=== PATIENT | female | born 1990 | race Caucasian/White ===

== ENCOUNTER 2018-04-13 22:00 | Emergency (ER) | payer OTHER ==
[~2018-04-13] VITALS: Ht 157.5 cm; Wt 62.6 kg
[2018-04-13 22:02] VITALS: BP 147/97
[2018-04-13] MEDS ORDERED: WELLBUTRIN SR150 MG PO (22:03)
[2018-04-13] MEDS ORDERED: PROZAC20 MG PO (22:03)
== END 2018-04-13 22:54 | disposition home or self-care (01) ==
LOC: ER 22:00
DX: S39.012A Strain of muscle, fascia and tendon of lower back, initial encounter (principal); F32.9 Major depressive disorder, single episode, unspecified; X50.0XXA Overexertion from strenuous movement or load, initial encounter; Y92.89 Other specified places as the place of occurrence of the external cause; Y93.89 Activity, other specified; Y99.8 Other external cause status

== ENCOUNTER → 2021-04-19 | Outpatient (CLI) | payer OTHER ==
[~2021-04-19] MED LIST: PROZAC20 MG PO; WELLBUTRIN SR150 MG PO
[2021-04-19 14:15] LABS: ABSOLUTE NEUTROPHILS 2.8 thou/uL (1.4-8.2); ABSOLUTE RETIC COUNT 0.0486 10^6/uL; BASOPHILS 0.3 % (0.0-2.0); HEMOGLOBIN 13.6 gm/dL (12.0-15.0); LYMPHOCYTES 23.3 % (24.0-44.0); MCH 27.9 pg (26.0-34.0); MCHC 32.4 g/dL (28.0-37.0); MCV 85.9 fL (80.0-100.0); MONOCYTES 8.5 % (1.0-8.0); OBSERVED RETIC COUNT 0.99 % (0.6-2.6); PLATELET COUNT 284 thou/uL (150-400); POLYS 65.9 % (36.0-66.0); RBC 4.89 mil/uL (4.20-5.00); WBC 4.2 thou/uL (4.0-11.0)
[2021-04-19 14:37] LABS: % SATURATION 25 % (20-39); IRON 96 ug/dL (50-170); TIBC 378 ug/dL (250-450)
[2021-04-19 14:38] LABS: CREATININE 0.8 mg/dL (0.6-1.0); POTASSIUM 4.2 mmol/L (3.5-5.1); TOTAL BILIRUBIN 0.3 mg/dL (0.2-1.0); TOTAL PROTEIN 7.4 g/dL (6.4-8.2)
[2021-04-19 15:46] LABS: FOLIC ACID 17.3 ng/mL (8.6-58.9)
[2021-04-20 06:06] LABS: HEMOGLOBIN 13.7 g/dL (11.1-15.9)
[2021-04-21 00:06] LABS: 25-HYDROXY TOTAL 49.6 ng/mL (30.0-100.0)
== END ==
LOC: LAB 13:33
PROVIDERS: ATTEND Internal Medicine
DX: D62 Acute posthemorrhagic anemia (principal)

== ENCOUNTER → 2021-07-23 | Outpatient (CLI) | payer OTHER ==
[2021-07-23 14:11] LABS: ABSOLUTE NEUTROPHILS 4.3 thou/uL (1.4-8.2); BASOPHILS 0.4 % (0.0-2.0); EOSINOPHILS 1.6 % (0.0-3.0); HEMATOCRIT 44.5 % (37.0-47.0); HEMOGLOBIN 14.8 gm/dL (12.0-15.0); LYMPHOCYTES 18.6 % (24.0-44.0); MCH 28.8 pg (26.0-34.0); MCHC 33.4 g/dL (28.0-37.0); MCV 86.4 fL (80.0-100.0); MONOCYTES 7.9 % (1.0-8.0); PLATELET COUNT 322 thou/uL (150-400); POLYS 71.5 % (36.0-66.0); RBC 5.14 mil/uL (4.20-5.00); RDW 14.3 % (10.5-14.5); WBC 6.1 thou/uL (4.0-11.0)
[2021-07-23 14:25] LABS: % SATURATION 31 % (20-39); IRON 117 ug/dL (50-170); TIBC 377 ug/dL (250-450)
[2021-07-23 14:27] LABS: ALBUMIN 4.3 g/dL (3.4-5.0); CALCIUM 9.8 mg/dL (8.5-10.1); CREATININE 1.2 mg/dL (0.6-1.0); POTASSIUM 4.7 mmol/L (3.5-5.1); TOTAL BILIRUBIN 0.4 mg/dL (0.2-1.0)
== END ==
LOC: LAB 13:22
PROVIDERS: ATTEND Internal Medicine
DX: D62 Acute posthemorrhagic anemia (principal)